=== PATIENT | female | born 1985 | race African-American/Black ===

== ENCOUNTER 2018-11-07 08:57 | Emergency (ER) | payer MEDICAID ==
[~2018-11-07] VITALS: Ht 172.7 cm; Wt 73.0 kg
[2018-11-07] MEDS ORDERED: KETOROLAC 15MG/ML VIAL IM ONE (10:30)
[2018-11-07 10:45] VITALS: BP 127/79
== END 2018-11-07 10:57 | disposition home or self-care (01) ==
LOC: ER 08:57
DX: M79.10 Myalgia, unspecified site (principal)
CPT/HCPCS: 81025; 96372; 99283; J1885; Z7610